=== PATIENT | female | born 1970 | race Caucasian/White ===

== ENCOUNTER → 2023-03-21 | Outpatient (CLI) | payer SELFPAY ==
[2023-03-24 20:12] LABS: ALBUMIN %,URINE 99.6 %; GAMMA GLOBULIN %,URINE 0.4 %; HOURS COLLECTED 24 hr; TOTAL PROTEIN,URINE-PER VOLUME 5 mg/dL; TOTAL VOLUME 2500 mL; URINE 24 HOUR PROTEIN 125 mg/d (40-150)
== END ==
LOC: LAB SHORT 11:10
PROVIDERS: Internal Medicine Rheumatology
DX: R77.8 Other specified abnormalities of plasma proteins (principal)
CPT/HCPCS: 81050

== ENCOUNTER 2024-06-07 15:21 | Inpatient (IN) | payer BC ==
[~2024-06-07] VITALS: Wt 162.1 kg
[2024-06-07] MEDS ORDERED: NEURONTIN300 MG PO (15:43)
[2024-06-07] MEDS ORDERED: CLOBETASOL EMOL15 G1 (15:44)
[2024-06-07] MEDS ORDERED: Cellcept500 MG PO (15:45)
[2024-06-07] MEDS ORDERED: Prednisone10 MG PO (15:48)
[2024-06-07] MEDS ORDERED: ALBU2.5V5 (15:49)
[2024-06-07] MEDS ORDERED: EZETIMIBE10 M6 PO (15:50)
[2024-06-07] MEDS ORDERED: ATOR40TA PO (15:50)
[2024-06-07] MEDS ORDERED: LISINOPRIL-HCT1 EAC1 PO (15:51)
[2024-06-07] MEDS ORDERED: ESOMEPRAZOLE MA40 MG PO (15:52)
[2024-06-07] MEDS ORDERED: OZEMPIC0.25 MG/02 SC (15:52)
[2024-06-07] MEDS ORDERED: FARXIGA10 MG PO (15:53)
[2024-06-07] MEDS ORDERED: PROZAC2010 PO (15:53)
[2024-06-07] MEDS ORDERED: METFORMIN HCL500 M2 PO (15:54)
[2024-06-07] MEDS ORDERED: GLIP10 PO (15:54)
[2024-06-07] MEDS ORDERED: FLUC200 PO (15:55)
[2024-06-07] MEDS ORDERED: ALLEGRA ALLERG180 MG PO (15:57)
[2024-06-07] MEDS ORDERED: BENADRYL25 M1 PO (15:57)
[2024-06-07 16:00] VITALS: BP 101/73
[2024-06-07] MEDS ORDERED: FLU VACC TS2024-25(6MOS UP)/PF 45 MCG/0.5 ML SYRINGE IM SCH (16:05)
[2024-06-07] MEDS ORDERED: Insulin Regular 100 UNIT/ML 10ML Vial SC SCH (16:30)
--- NOTE | 2024-06-07 16:42 | NUR ---
CONSULT AND FACE SHEET SENT TO [facility] @ [phone] AFTER SPEAKING WITH FRONT OFFICE STAFF. ATTEMPTED TO CALL DR FUNG FOR CONSULT FOR SWOLLEN/PAINFUL L ANKLE
[2024-06-07 16:45] VITALS: BP 123/67
[2024-06-07] MEDS ORDERED: DiphenhydrAMINE HCL 25 MG Cap PO PRN (16:50)
[2024-06-07] MEDS ORDERED: Acetaminophen 325 MG TABLET PO PRN (16:55)
[2024-06-07] MEDS ORDERED: FentaNYL Citrate 50 MCG/ML 2 ML Injection IV PRN (17:00)
[2024-06-07] MEDS ORDERED: Lactated Ringer's 1,000 ML IV SCH ×2 (17:15→20:45)
[2024-06-07] MEDS ORDERED: CefTRIAXone Sodium 2,000 MG in NS 100 ML IV SCH (18:00)
[2024-06-07 18:02] LABS: Source, Urine Clean Catch
[2024-06-07 18:06] LABS: Appearance, Urine Clear (Clear); Bilirubin, Urine Neg (Neg); Blood, Urine 2+ (Neg); Color, Urine Yellow (P-Yellow); Glucose Qualitative, Urine 4+ (Neg); Ketones, Urine Neg (Neg); Leukocyte Esterase, Urine Neg (Neg); Nitrite, Urine Neg (Neg); Protein, Urine Neg (Neg); Specific Gravity, Urine 1.015 (1.003-1.022); Urobilinogen, Urine NORM (Normal)
[2024-06-07 18:13] LABS: Bacteria Mod /hpf; Squamous Epithelial Cells Few /hpf (Few); White Blood Cells, Urine 0-2 /hpf (0-5)
--- NOTE | 2024-06-07 18:17 | NUR ---
NEW ADMIT FOR VASCULITIS, AOX4 SBA IN ROOM IV BOLUS AND ABX RUNNING. ADMISSION ASSESSMENT AND HX COMPLETE. LAB DRAWN URINE SAMPLE COMPLETE. PICTURES TAKEN OF SKIN AND CAMERA AT NURSES STATION. CALL LIGHT IN REACH VSS.
[2024-06-07 19:22] VITALS: BP 117/75
[2024-06-07] MEDS ORDERED: Mycophenolate Mofetil 250 MG Cap PO SCH (21:00)
[2024-06-07] MEDS ORDERED: Lactobacil 2-S.Thermo-Bifido 1 1 Cap PO SCH (21:00)
[2024-06-07] MEDS ORDERED: Gabapentin 300 MG Cap PO SCH (21:00)
[2024-06-07 23:34] VITALS: BP 117/68
[2024-06-08 03:48] VITALS: BP 117/76
--- NOTE | 2024-06-08 04:55 | NUR ---
SHIFT SUMMARY PT ER ADMIT YESTERDAY EVENING FOR VASCULITIS. VASCULITIS PRESENT PREDOMINANTLY TO LEGS AND FEET. BUT ALSO PRESENT ON TRUNK, AND HANDS. PT REPORTS PAIN A BURNING LIKE SENSATION. LACTIC ACID WAS 3.7, AND HAS NOW TRENDED DOWN TO 2.9. PT FINISHED UP A BOLUS OF LR DURING SHIFT CHANGE AND IS NOW RECEIVING MAINTENANCE FLUIDS. ALSO ON IV ANTIBIOTICS. PAIN MANANGED WITH MEDS PER EMAR. VITALS ARE STABLE. PT DENIES SOB. DENIES N/V THIS SHIFT. PT PENDING PODIATRY AND DERMATOLOGY CONSULT AT THIS TIME. BED IN LOWEST POSITION, CALL LIGHT WITHIN REACH.
[2024-06-08 05:24] LABS: BASOPHILS ABSOLUTE AUTO 0.04 K/mm3 (0.00-0.23); BASOPHILS PERCENT AUTO 0 % (0-2); EOSINOPHILS ABSOLUTE AUTO 0.05 K/mm3 (0.00-0.68); EOSINOPHILS PERCENT AUTO 0 % (0-6); Hematocrit 43.2 % (33.0-51.0); Hemoglobin 13.4 g/dL (11.5-16.0); IMMATURE GRAN ABSOLUTE AUTO 0.14 K/mm3 (0.00-0.10); IMMATURE GRAN PERCENT AUTO 1 % (0-1); LYMPHOCYTES ABSOLUTE AUTO 3.17 K/mm3 (0.84-5.20); LYMPHOCYTES PERCENT AUTO 20 % (21-46); MONOCYTES ABSOLUTE AUTO 1.49 K/mm3 (0.16-1.47); MONOCYTES PERCENT AUTO 10 % (4-13); Mean Corpuscular HGB 26.4 pg (26.0-34.0); Mean Corpuscular Volume 85 fL (80-100); Mean Platelet Volume 9.1 fL (9.1-12.4); NEUTROPHILS ABSOLUTE AUTO 10.63 K/mm3 (1.96-9.15); NEUTROPHILS PERCENT AUTO 69 % (41-73); Platelet Count 276 K/mm3 (150-400); RDW Coefficient Variation 15.7 % (11.7-14.2); RDW Standard Deviation 47.9 fL (35.1-46.3); Red Blood Cell Count 5.08 M/mm3 (3.80-5.20); White Blood Cell Count 15.52 K/mm3 (4.00-11.30)
[2024-06-08] MEDS ORDERED: Pantoprazole Sodium 40 MG Tab PO SCH (06:00)
[2024-06-08 06:06] LABS: Bun/Creatinine Ratio 26.6 (12.0-20.0); Calcium, Blood 8.9 mg/dL (8.5-10.1); Creatinine, Blood 0.98 mg/dL (0.40-1.00)
[2024-06-08 07:10] VITALS: BP 128/64
[2024-06-08] MEDS ORDERED: HydroCHLOROthiazide 25 mg Tab PO SCH (09:00)
[2024-06-08] MEDS ORDERED: FLUoxetine HCL 20 MG CAP PO SCH (09:00)
[2024-06-08] MEDS ORDERED: Ezetimibe 10 MG Tab PO SCH (09:00)
[2024-06-08] MEDS ORDERED: PredniSONE 10 MG Tab PO SCH (09:00)
[2024-06-08] MEDS ORDERED: Atorvastatin 40 MG Tab PO SCH (09:00)
[2024-06-08] MEDS ORDERED: Enoxaparin 40 MG/0.4 ML SYR SC SCH (09:00)
[2024-06-08] MEDS ORDERED: Lisinopril 10 MG Tab PO SCH (09:00)
[2024-06-08 15:13] VITALS: BP 142/84
--- NOTE | 2024-06-08 18:46 | NUR ---
PT IS STABLE THIS SHIFT. NO SPREAD OF RASH. PT PAIN IS SIGNIFICANTLY BETTER THAN YESTERDAY. AWAITING DERMATOLOGY AND PODIATRY CONSULTS. LACTIC ACID IMPROVED. CONT ABX AND FLUIDS. PT ON LAST BAG. URINE PENDING. BLOOD CULTURES PENDING. AM LABS TO REPEAT. PT INDEP IN ROOM. EATING WELL. BLOOD SUGARS STABLE. PT USES CALL LIGHT APPROPRIATELY NEEDED.
[2024-06-08 19:40] VITALS: BP 100/57
[2024-06-08 23:13] VITALS: BP 126/68
[2024-06-09 04:55] LABS: BASOPHILS ABSOLUTE AUTO 0.04 K/mm3 (0.00-0.23); BASOPHILS PERCENT AUTO 0 % (0-2); EOSINOPHILS ABSOLUTE AUTO 0.09 K/mm3 (0.00-0.68); EOSINOPHILS PERCENT AUTO 1 % (0-6); Hematocrit 41.3 % (33.0-51.0); Hemoglobin 12.9 g/dL (11.5-16.0); IMMATURE GRAN PERCENT AUTO 1 % (0-1); LYMPHOCYTES ABSOLUTE AUTO 3.29 K/mm3 (0.84-5.20); LYMPHOCYTES PERCENT AUTO 24 % (21-46); MONOCYTES PERCENT AUTO 11 % (4-13); Mean Corpuscular HGB 26.4 pg (26.0-34.0); Mean Corpuscular HGB Conc 31.2 g/dL (31.5-36.5); Mean Corpuscular Volume 85 fL (80-100); Mean Platelet Volume 9.1 fL (9.1-12.4); NEUTROPHILS ABSOLUTE AUTO 8.53 K/mm3 (1.96-9.15); NEUTROPHILS PERCENT AUTO 63 % (41-73); Platelet Count 261 K/mm3 (150-400); RDW Coefficient Variation 15.6 % (11.7-14.2); RDW Standard Deviation 47.8 fL (35.1-46.3); Red Blood Cell Count 4.88 M/mm3 (3.80-5.20); White Blood Cell Count 13.55 K/mm3 (4.00-11.30)
--- NOTE | 2024-06-09 05:13 | NUR ---
SHIFT SUMMARY NO ACUTE CHANGES TO REPORT OVERNIGHT. PT REPORTS PAIN HAS IMPROVED AND REPORTS SHE ONLY REALLY FEELS PAIN WHEN AMBULATING. DECLINES ANYTHING FOR PAIN. RASH HAS NOT SPREAD. PT HAS BEEN INDEPENDENT IN THE ROOM. VITALS STABLE. PLAN OF CARE REMAINS UNCHANGED. BED IN LOWEST POSITION, CALL LIGHT WITHIN REACH.
[2024-06-09 05:19] LABS: Calcium, Blood 9.4 mg/dL (8.5-10.1); Creatinine, Blood 0.79 mg/dL (0.40-1.00); Potassium, Blood 4.1 mmol/L (3.5-5.5)
[2024-06-09 07:02] VITALS: BP 130/83
[2024-06-09 14:56] VITALS: BP 138/96
--- NOTE | 2024-06-09 17:06 | NUR ---
DR FUNG IN TO SEE PT.
--- NOTE | 2024-06-09 17:54 | NUR ---
SUMMARY NO ACUTE CHANGES T/O SHIFT. DR FUNG IN TO SEE PT THIS EVENING. ORDERED CTS OF BL ANKLES. ABX INFUSING AT THIS TIME PER ORDERS. PT INDEPENDENT IN ROOM. CALL LIGHT IN REACH.
[2024-06-09 19:53] VITALS: BP 118/55
[2024-06-09] MEDS ORDERED: DiphenhydrAMINE HCL 25 MG Cap PO PRN (22:00)
[2024-06-10 04:30] VITALS: BP 117/69
--- NOTE | 2024-06-10 05:06 | NUR ---
SHIFT SUMMARY AOX4. VSS. BILAT LE SCATTERED W/CIRCULAR PURPURA RASH, REDISH PURPLE IN COLOR, SOME OLDER ONES SCABBED OVER. FAINT RASH ON POSTERIOR ARMS & HANDS. +1 EDEMA TO BILAT ANKLES. REPORTS BURNING SENSATION & TENDERNESS TO PALPATION TO BLE. REPORTS NEW ONSET ANKLE PAIN WORSE W/AMBULATION DENIES NEED FOR PAIN MEDS. PT WENT TO CT FOR IMAGING OF ANKLES LAST NIGHT. AWAITING DERMATOLOGY CONSULT. CALL LIGHT IN REACH.
[2024-06-10 05:23] LABS: BASOPHILS ABSOLUTE AUTO 0.05 K/mm3 (0.00-0.23); BASOPHILS PERCENT AUTO 0 % (0-2); EOSINOPHILS ABSOLUTE AUTO 0.07 K/mm3 (0.00-0.68); EOSINOPHILS PERCENT AUTO 1 % (0-6); Hematocrit 41.5 % (33.0-51.0); IMMATURE GRAN ABSOLUTE AUTO 0.09 K/mm3 (0.00-0.10); IMMATURE GRAN PERCENT AUTO 1 % (0-1); LYMPHOCYTES ABSOLUTE AUTO 3.09 K/mm3 (0.84-5.20); LYMPHOCYTES PERCENT AUTO 25 % (21-46); MONOCYTES ABSOLUTE AUTO 1.34 K/mm3 (0.16-1.47); MONOCYTES PERCENT AUTO 11 % (4-13); Mean Corpuscular HGB 26.5 pg (26.0-34.0); Mean Corpuscular HGB Conc 31.3 g/dL (31.5-36.5); Mean Corpuscular Volume 85 fL (80-100); Mean Platelet Volume 8.7 fL (9.1-12.4); NEUTROPHILS ABSOLUTE AUTO 7.88 K/mm3 (1.96-9.15); NEUTROPHILS PERCENT AUTO 63 % (41-73); Platelet Count 250 K/mm3 (150-400); RDW Coefficient Variation 15.4 % (11.7-14.2); RDW Standard Deviation 47.5 fL (35.1-46.3); Red Blood Cell Count 4.91 M/mm3 (3.80-5.20); White Blood Cell Count 12.52 K/mm3 (4.00-11.30)
[2024-06-10 05:36] LABS: Bun/Creatinine Ratio 25.6 (12.0-20.0); Calcium, Blood 9.1 mg/dL (8.5-10.1); Creatinine, Blood 0.9 mg/dL (0.40-1.00); Potassium, Blood 3.9 mmol/L (3.5-5.5)
[2024-06-10 07:34] VITALS: BP 119/72
[2024-06-10] MEDS ORDERED: Lidocaine 1%-EPI 1:100,000 50 ML UD ONE (14:10)
[2024-06-10 14:18] VITALS: BP 109/79
--- NOTE | 2024-06-10 19:49 | NUR ---
SHIFT SUMMARY ADMITTED FOR VASCULITIS, A/OX4, VSS, TOLERATING PO, PAIN TOLERABLE THIS SHIFT, INDEPENDENT IN THE ROOM, PUNCH BIOPSY PERFORMED TODAY BY PODIETRY, L ANKLE ASPIRATION ALSO DONE BY PODIETRY, SAMPLE TOO SMALL FOR CELL COUNT PER LAB BUT CULTURES ARE PENDING. NO ACUTE EVENTS THIS SHIFT, CALL LIGHT IN REACH.
[2024-06-10 20:28] VITALS: BP 131/76
--- NOTE | 2024-06-11 05:01 | NUR ---
SHIFT SUMMARY S/P BILAT LOWER EXTREMITY VASCULITIS. NO ACUTE CHANGES OVERNIGHT. VSS. TOLERTING DIET. VOIDING. IND IN ROOM. R FOOT BIOPSY SITE c GAUZE/COBAN IN PLACE. PT REPORTS PAIN TOLERABLE. ABX PER EMAR. CALL LIGHT IN REACH, BED IN LOWEST POSITION, WILL REPORT TO DAY RN.
[2024-06-11 05:34] LABS: BASOPHILS ABSOLUTE AUTO 0.06 K/mm3 (0.00-0.23); BASOPHILS PERCENT AUTO 1 % (0-2); EOSINOPHILS ABSOLUTE AUTO 0.07 K/mm3 (0.00-0.68); EOSINOPHILS PERCENT AUTO 1 % (0-6); Hematocrit 40.9 % (33.0-51.0); Hemoglobin 12.6 g/dL (11.5-16.0); IMMATURE GRAN ABSOLUTE AUTO 0.09 K/mm3 (0.00-0.10); IMMATURE GRAN PERCENT AUTO 1 % (0-1); LYMPHOCYTES ABSOLUTE AUTO 2.97 K/mm3 (0.84-5.20); LYMPHOCYTES PERCENT AUTO 24 % (21-46); MONOCYTES ABSOLUTE AUTO 1.46 K/mm3 (0.16-1.47); MONOCYTES PERCENT AUTO 12 % (4-13); Mean Corpuscular HGB 26.6 pg (26.0-34.0); Mean Corpuscular HGB Conc 30.8 g/dL (31.5-36.5); Mean Corpuscular Volume 87 fL (80-100); Mean Platelet Volume 8.9 fL (9.1-12.4); NEUTROPHILS ABSOLUTE AUTO 7.79 K/mm3 (1.96-9.15); NEUTROPHILS PERCENT AUTO 63 % (41-73); Platelet Count 236 K/mm3 (150-400); RDW Coefficient Variation 15.8 % (11.7-14.2); RDW Standard Deviation 49.9 fL (35.1-46.3); Red Blood Cell Count 4.73 M/mm3 (3.80-5.20); White Blood Cell Count 12.44 K/mm3 (4.00-11.30)
[2024-06-11 05:46] VITALS: BP 120/79
[2024-06-11 06:03] LABS: Bun/Creatinine Ratio 30.3 (12.0-20.0); Calcium, Blood 9.1 mg/dL (8.5-10.1); Creatinine, Blood 0.83 mg/dL (0.40-1.00); Potassium, Blood 3.9 mmol/L (3.5-5.5)
--- NOTE | 2024-06-11 11:22 | NUR ---
"Spiritual Care Visit | Pt. request Pt. is on the phone when I enter the room, but hangs up and is available to visit. Facilitated a very lengthy life review. Listened with pastoral care, empathy , and a calming presence. Pt. verbalized that she and her are new to the area, having moved from the [facility]. Consider many matters of annalisa and beleif. Pt. displays evidence of being fully engaged and aware of her situation and health. Prayed with the Pt. Pt. verbalized gratitude forthe spiritual care visit, and welcomed this home maker to call on her again."
[2024-06-11] MEDS ORDERED: Fluconazole 100 MG Tab PO ONE (11:25)
[2024-06-11 15:15] VITALS: BP 106/60
--- NOTE | 2024-06-11 18:11 | NUR ---
SHIFT SUMMARY SHE HAD AN IMPROVED DAY TODAY WITH LESS PAIN/DISCOMFORT, SHE DID NOT NEED ANY PAIN MEDS THIS THIS SHIFT, INDEPENDENT IN THE ROOM, RASH REMAINS BLE. NO ACUTE EVENTS THIS SHIFT, CALL LIGHT IN REACH.
[2024-06-11 19:18] VITALS: BP 120/77
--- NOTE | 2024-06-12 04:19 | NUR ---
SHIFT SUMMARY S/P BILAT LOWER EXTREMITY VASCULITIS. NO ACUTE CHANGES OVERNIGHT. VSS. TOLERTING DIET. VOIDING. IND IN ROOM. PURPURA TO LEs REMAINS UNCHANGED. PT REPORTS PAIN TOLERABLE. ABX PER EMAR. ANTICIPATED DISCHARGE LATER TODAY. CALL LIGHT IN REACH, BED IN LOWEST POSITION, WILL REPORT TO DAY RN.
[2024-06-12 05:44] VITALS: BP 129/69
[2024-06-12 06:02] LABS: BASOPHILS ABSOLUTE AUTO 0.07 K/mm3 (0.00-0.23); BASOPHILS PERCENT AUTO 1 % (0-2); EOSINOPHILS ABSOLUTE AUTO 0.08 K/mm3 (0.00-0.68); EOSINOPHILS PERCENT AUTO 1 % (0-6); Hematocrit 42.5 % (33.0-51.0); IMMATURE GRAN ABSOLUTE AUTO 0.08 K/mm3 (0.00-0.10); IMMATURE GRAN PERCENT AUTO 1 % (0-1); LYMPHOCYTES PERCENT AUTO 24 % (21-46); MONOCYTES ABSOLUTE AUTO 1.33 K/mm3 (0.16-1.47); MONOCYTES PERCENT AUTO 11 % (4-13); Mean Corpuscular HGB 26.5 pg (26.0-34.0); Mean Corpuscular HGB Conc 30.6 g/dL (31.5-36.5); Mean Corpuscular Volume 87 fL (80-100); Mean Platelet Volume 9.1 fL (9.1-12.4); NEUTROPHILS ABSOLUTE AUTO 7.72 K/mm3 (1.96-9.15); NEUTROPHILS PERCENT AUTO 63 % (41-73); Platelet Count 260 K/mm3 (150-400); RDW Coefficient Variation 15.7 % (11.7-14.2); RDW Standard Deviation 49.3 fL (35.1-46.3); White Blood Cell Count 12.28 K/mm3 (4.00-11.30)
[2024-06-12 06:26] LABS: Bun/Creatinine Ratio 25.7 (12.0-20.0); C-REACTIVE PROTEIN, EXT RANGE 0.688 mg/dL (0.000-0.300); Calcium, Blood 9.1 mg/dL (8.5-10.1); Creatinine, Blood 0.82 mg/dL (0.40-1.00); Potassium, Blood 4.2 mmol/L (3.5-5.5)
[2024-06-12 07:11] VITALS: BP 136/87
[2024-06-12] MEDS ORDERED: Prednisone10 MG PO (10:32)
[2024-06-12] MEDS ORDERED: Cefpodoxime Pr100 MG PO (10:33)
[2024-06-12] MEDS ORDERED: VISBIOME 112.51 EACH PO (10:34)
--- NOTE | 2024-06-12 10:55 | NUR ---
DISCHARGE PT AOX4, COOPERATIVE, ABLE TO MAKE NEEDS KNOWN. HANK ALFREDO WENT OVER DISCHARGE PAPERWORK WITH PT. IV WAS DC'D BY THIS RN. FAMILY MEMBER CAME TO ROOM FOR BELONGINGS. PT WAS TRANSPORTED TO PT ENTRANCE BY PIT BOSS USING WHEELCHAIR. BELONGINGS WENT ALONG WITH PT AND DC PAPERWORK.
== END 2024-06-12 10:45 | disposition home or self-care (01) | DRG 545 ==
LOC: SURS 15:21
PROVIDERS: Internal Medicine; ADMIT Family Medicine
PROC: 0HBMXZX Excision of Right Foot Skin, External Approach, Diagnostic (ICD-10-PCS; principal; 2024-06-10)
DX: I77.6 Arteritis, unspecified (principal); A41.9 Sepsis, unspecified organism; R65.20 Severe sepsis without septic shock; D84.9 Immunodeficiency, unspecified; E87.20 Acidosis, unspecified; E66.9 Obesity, unspecified; E78.5 Hyperlipidemia, unspecified; F32.A Depression, unspecified; M79.7 Fibromyalgia; E11.9 Type 2 diabetes mellitus without complications; I10 Essential (primary) hypertension; Z90.710 Acquired absence of both cervix and uterus; Z90.49 Acquired absence of other specified parts of digestive tract; Z98.890 Other specified postprocedural states; Z88.5 Allergy status to narcotic agent; Z91.018 Allergy to other foods; Z91.013 Allergy to seafood; Z88.8 Allergy status to other drugs, medicaments and biological substances; Z79.899 Other long term (current) drug therapy; Z79.84 Long term (current) use of oral hypoglycemic drugs; Z79.51 Long term (current) use of inhaled steroids; B96.4 Proteus (mirabilis) (morganii) as the cause of diseases classified elsewhere
CPT/HCPCS: 36415; 71045; 73600; 73700; 80048; 81001; 82947; 83605; 84145; 85025; 85651; 86140; 87040; 87070; 87075; 87077; 87086; 87186; 87205; 88305; 88312; 93306; A9270; J0696; J1650; J1815; J3010; J7120; J7512; J7517

== ENCOUNTER → 2024-08-29 | Outpatient (CLI) | payer BC ==
[~2024-08-29] MED LIST: ALBU2.5V5; ALLEGRA ALLERG180 MG PO; ATOR40TA PO; BENADRYL25 M1 PO; CLOBETASOL EMOL15 G1; Cefpodoxime Pr100 MG PO; Cellcept500 MG PO; ESOMEPRAZOLE MA40 MG PO; EZETIMIBE10 M6 PO; FARXIGA10 MG PO; FLUC200 PO; GLIP10 PO; LISINOPRIL-HCT1 EAC1 PO; METFORMIN HCL500 M2 PO; NEURONTIN300 MG PO; OZEMPIC0.25 MG/02 SC; PROZAC2010 PO; Prednisone10 MG PO; VISBIOME 112.51 EACH PO
== END ==
LOC: LAB 17:26 → LAB SHORT 17:26
DX: R30.0 Dysuria (principal)
CPT/HCPCS: 87086

== ENCOUNTER → 2024-11-08 | Outpatient (CLI) | payer BC ==
[2024-11-08 17:29] LABS: BASOPHILS ABSOLUTE AUTO 0.05 K/mm3 (0.00-0.23); BASOPHILS PERCENT AUTO 0 % (0-2); EOSINOPHILS ABSOLUTE AUTO 0.11 K/mm3 (0.00-0.68); EOSINOPHILS PERCENT AUTO 1 % (0-6); Hematocrit 39.5 % (33.0-51.0); Hemoglobin 12.3 g/dL (11.5-16.0); IMMATURE GRAN ABSOLUTE AUTO 0.09 K/mm3 (0.00-0.10); IMMATURE GRAN PERCENT AUTO 1 % (0-1); LYMPHOCYTES ABSOLUTE AUTO 2.19 K/mm3 (0.84-5.20); LYMPHOCYTES PERCENT AUTO 17 % (21-46); MONOCYTES ABSOLUTE AUTO 1.29 K/mm3 (0.16-1.47); MONOCYTES PERCENT AUTO 10 % (4-13); Mean Corpuscular HGB Conc 31.1 g/dL (31.5-36.5); Mean Corpuscular Volume 86 fL (80-100); NEUTROPHILS ABSOLUTE AUTO 9.36 K/mm3 (1.96-9.15); NEUTROPHILS PERCENT AUTO 72 % (41-73); NRBC ABSOLUTE 0.00 K/mm3 (0.00-0.02); NRBC Auto 0.0 /100 WBC (0.0-0.2); Platelet Count 256 K/mm3 (150-400); RDW Coefficient Variation 13.8 % (11.7-14.2); RDW Standard Deviation 43.1 fL (35.1-46.3)
[2024-11-08 18:54] LABS: Alanine Aminotransfer (ALT/SGP 28.0 U/L (12-78); Albumin, Blood 3.3 g/dL (3.4-5.0); Albumin/Globulin Ratio 0.8 (0.8-1.8); Anion Gap 9.0 mmol/L (3-11); Aspartate Aminotrans (AST/SGOT 14.0 U/L (12-37); Bilirubin, Total 0.3 mg/dL (0.1-1.0); Blood Urea Nitrogen 18.0 mg/dL (8-24); CO2, Blood 28.0 mmol/L (21-32); Calcium, Blood 9.6 mg/dL (8.5-10.1); Chloride, Blood 99.0 mmol/L (98-108); Creatinine, Blood 0.86 mg/dL (0.40-1.00); Globulin, Blood 4.4 g/dL (2.2-4.0); Glucose, Blood 136.0 mg/dL (70-99); Potassium, Blood 3.6 mmol/L (3.5-5.5); Sodium, Blood 132.0 mmol/L (136-145); Total Protein, Blood 7.7 g/dL (6.4-8.2)
== END ==
LOC: LAB 16:55 → LAB SHORT 16:55
DX: D72.829 Elevated white blood cell count, unspecified (principal); N18.9 Chronic kidney disease, unspecified
CPT/HCPCS: 36415; 80053; 85025

== ENCOUNTER → 2024-11-08 | Outpatient (CLI) | payer BC ==
[2024-11-08 16:27] LABS: Source, Urine Voided
[2024-11-08 17:40] LABS: Bilirubin, Urine Neg (Neg); Color, Urine Yellow (P-Yellow); Glucose Qualitative, Urine Neg (Neg); Ketones, Urine Neg (Neg); Leukocyte Esterase, Urine 1+ (Neg); Protein, Urine 1+ (Neg); Specific Gravity, Urine 1.015 (1.003-1.022); Urobilinogen, Urine NORM (Normal)
== END ==
LOC: LAB SHORT 16:26 → LAB 16:26
DX: D72.829 Elevated white blood cell count, unspecified (principal); N18.9 Chronic kidney disease, unspecified
CPT/HCPCS: 81001; 87086

== ENCOUNTER → 2024-11-21 | Outpatient (CLI) | payer BC | LOC: LAB 14:53 → LAB SHORT 14:53 | DX: D69.0 Allergic purpura (principal) | CPT/HCPCS: 87086 ==